=== PATIENT | female | born 1965 | race Two or more races ===

== ENCOUNTER 2016-12-31 18:49 | Inpatient (IN) | payer MEDICAID ==
[~2016-12-31] VITALS: Ht 162.6 cm; Wt 67.1 kg
[2016-12-31 18:57] VITALS: BP 156/92
--- NOTE | 2016-12-31 19:01 | NUR ---
PT IN BED 2
--- NOTE | 2016-12-31 19:12 | NUR ---
Patient being evaluated by Dr. Chavarria at bedside.
[2016-12-31] MEDS ORDERED: NACL 0.9% 2,000 ML IV ONE (19:15)
[2016-12-31 19:45] LABS: BASOPHILS # (AUTO) 0.2 K/uL (0.00-0.22); EOSINOPHILS # (AUTO) 0.1 K/uL (0-0.4); HEMATOCRIT 35.5 % (36-48); LYMPHOCYTES # (AUTO) 1.7 K/uL (2.5-16.5); MEAN CORPUSCULAR HEMOGLOBIN 26 pg (27-31); MEAN CORPUSCULAR HGB CONC 31 g/dL (33-37); MEAN CORPUSCULAR VOLUME 85 fL (80-94); MONOCYTES # (AUTO) 0.3 K/uL (0.8-1.0); MONOCYTES % (AUTO) 3.4 % (1.7-9.3); NEUTROPHILS # (AUTO) 6.5 K/uL (1.8-7.7); NEUTROPHILS % (AUTO) 74.6 % (42.2-75.2); PLATELET COUNT (AUTO) 345 K/uL (140-450); RED BLOOD CELL COUNT(AUTO) 4.17 MIL/uL (4.20-5.40); RED CELL DISTRIBUTION WIDTH 13.2 % (11.6-13.7); WHITE BLOOD COUNT (AUTO) 8.8 K/uL (4.8-10.8)
[2016-12-31 19:53] LABS: PROTHROMBIN TIME 10.4 secs (10.8-13.4)
--- NOTE | 2016-12-31 19:56 | NUR ---
PT RETURN FROM CT
[2016-12-31 19:59] LABS: ALBUMIN 3.4 g/dL (3.4-5.0); ANION GAP 13.4 (8-16); CARBON DIOXIDE 25.6 mmol/L (21-32); CREATININE 0.5 mg/dL (0.6-1.3); TOTAL BILIRUBIN 0.5 mg/dL (0.0-1.0)
--- NOTE | 2016-12-31 20:00 | NUR ---
51Y/F PRESENTS TO ER C/O CHEST PAIN, N/V X1 DAY. PMH HTN, NKA. PT STATES SHE HAS BEEN VOMITING SINCE THIS AM AND CHEST PAIN BEGAN THIS EVENING W/SOB. PT IS AA&O X4, BL LUNG SOUNDS CLEAR THROUGHOUT, NO APPARENT DISTRESS AT THIS TIME, ABD IS SOFT, ROUND, NON TENDER ACTIVE BS X4. PT HAS HEADACHE 8/10, NON RADIATING. PT HAS HTN BUT DENIES TAKING HOME MEDICATIONS. PT INBED SIDE RAILS UP X2, FAMILY AT BEDSIDE, ER MD NOTIFIED OF PT STATUS.
[2016-12-31] MEDS ORDERED: ONDANSETRON 4 MG/2 ML VIAL IVP ONE (20:20)
[2016-12-31] MEDS ORDERED: ASPIRIN 325 MG TAB PO ONE (20:20)
[2016-12-31] MEDS ORDERED: fentaNYL 0.05 MG/ML VIAL IVP ONE (20:20)
[2016-12-31] MEDS ORDERED: HYDROcodone/APAP 7.5/325 MG 1 TAB PO PRN (20:55)
[2016-12-31] MEDS ORDERED: MECLIZINE 25 MG TAB PO PRN (20:55)
[2016-12-31] MEDS ORDERED: ACETAMINOPHEN 325 MG TAB PO PRN (20:55)
[2016-12-31 20:58] LABS: BILIRUBIN,URINE NEGATIVE (NEGATIVE); BLOOD, URINE NEGATIVE (NEGATIVE); COLOR,URINE YELLOW (YELLOW); LEUKOCYTE ESTERASE ,URINE NEGATIVE (NEGATIVE); NITRITE, URINE NEGATIVE (NEGATIVE); UGLUCOSE NEGATIVE (NEGATIVE)
[2016-12-31 21:09] LABS: RBC,URINE 0-5 (RARE) /HPF (0-5); WBC,URINE 0-5 (RARE) /HPF (0-5)
[2016-12-31 21:10] LABS: APPEARANCE,URINE CLEAR (CLEAR)
[2016-12-31] MEDS ORDERED: ATORVASTATIN 20 MG TAB PO SCH (22:15)
[2016-12-31] MEDS ORDERED: NITROGLYCERIN 0.4 MG TAB SL PRN (22:15)
--- NOTE | 2016-12-31 22:25 | NUR ---
Patient will be admitted to [facility]. Admited to TELE. Will go to room 106B. Belongings list completed. Report to JESUS AMIN.
[2016-12-31 23:00] VITALS: BP 137/78
[2016-12-31] MEDS ORDERED: SUMAtriptan 50 MG TAB PO ONE (23:00)
--- NOTE | 2016-12-31 23:00 | NUR ---
ADMITTED 51 Y.O.F FROM ER.PLACED ON BED.TELE APPLIED AND SHOWING SR.PT.IS AWAKE ALERT AND ORIENTED.RESP UNLABORED IN RA.DENIED PAIN AT TIME OF ADMISSION.CALL SYSTEM EXPLAINED AND IN REACH.CARE PLAN DISCUSSED W/PT.SHE VWRBALIZED UNDERSTANDING.WILL CONTINUE MONITORING.SL PATENT IN RT.AC.
[2016-12-31] MEDS: ASPIRIN 81 MG TAB.CHEW PO SCH (23:30)
[2016-12-31] MEDS: NACL 0.9% 1,000 ML IV SCH (23:50)
[2016-12-31] MEDS: DOCUSATE SODIUM 100 MG GELCAP PO SCH (23:51)
[2016-12-31] MEDS: ONDANSETRON 4 MG/2 ML VIAL IVP PRN (23:54)
[2016-12-31 23:56] LABS: FREE T4 (FREE THYROXINE) 1.06 ng/dL (0.76-1.46); MAGNESIUM 1.8 mg/dL (1.8-2.4); PHOSPHORUS 2.9 mg/dL (2.5-4.9); THYROID STIMULATING HORMONE 1.48 uIU/mL (0.34-3.74)
[2017-01-01 04:00] VITALS: BP 130/75
--- NOTE | 2017-01-01 04:00 | NUR ---
SLEEPING.NO C/O PAIN OR DISCOMFORT NOW.IVF OF NS AT 100ML/H STARTED AND INFUSING WELL.HR IS SR.
[2017-01-01 05:49] LABS: POTASSIUM 3.8 mmol/L (3.5-5.1)
[2017-01-01 05:50] LABS: ANION GAP 10.1 (8-16); CARBON DIOXIDE 26.7 mmol/L (21-32); CREATININE 0.5 mg/dL (0.6-1.3)
[2017-01-01 05:56] LABS: MAGNESIUM 1.9 mg/dL (1.8-2.4); PHOSPHORUS 3.1 mg/dL (2.5-4.9)
[2017-01-01 06:00] LABS: BASOPHILS # (AUTO) 0.2 K/uL (0.00-0.22); BASOPHILS % (AUTO) 2.3 % (0.0-2.0); EOSINOPHILS # (AUTO) 0.1 K/uL (0-0.4); EOSINOPHILS % (AUTO) 0.8 % (0.0-4.0); HEMATOCRIT 33.3 % (36-48); HEMOGLOBIN 10.9 g/dL (12.0-16.0); LYMPHOCYTES # (AUTO) 2.2 K/uL (2.5-16.5); LYMPHOCYTES % (AUTO) 22.8 % (20.5-51.1); MEAN CORPUSCULAR HEMOGLOBIN 27 pg (27-31); MEAN CORPUSCULAR HGB CONC 33 g/dL (33-37); MEAN CORPUSCULAR VOLUME 84 fL (80-94); MONOCYTES # (AUTO) 0.5 K/uL (0.8-1.0); MONOCYTES % (AUTO) 5.2 % (1.7-9.3); NEUTROPHILS # (AUTO) 6.5 K/uL (1.8-7.7); NEUTROPHILS % (AUTO) 68.9 % (42.2-75.2); PLATELET COUNT (AUTO) 329 K/uL (140-450); RED BLOOD CELL COUNT(AUTO) 3.97 MIL/uL (4.20-5.40); RED CELL DISTRIBUTION WIDTH 13.2 % (11.6-13.7); WHITE BLOOD COUNT (AUTO) 9.5 K/uL (4.8-10.8)
[2017-01-01] MEDS: NACL 0.9% 1,000 ML IV SCH ×3 (06:11→22:05)
--- NOTE | 2017-01-01 07:40 | NUR ---
REPORT RECEIVED FROM NIGHT RN, PT AWAKE IN BED ON RA, PT DENIES PAIN, A/O X 4, NO S/S OF ACUTE DISTRESS, IV PATENT AND INTACT, FAMILY MEMBER AT BEDSIDE, SAFETY PRECAUTIONS TAKEN, CALL LIGHT WITHIN REACH.
--- NOTE | 2017-01-01 07:40 | NUR ---
REPORT GIVEN TO AM [facility] NURSE.PT IS IN STABLE CONDITION.IVF IS IN PROGRESS.TELE IS ON AND SHOWING SR.
[2017-01-01 08:00] VITALS: BP 139/79
--- NOTE | 2017-01-01 08:19 | NUR ---
PATIENT HAS BEEN SCREENED AND CATEGORIZED LOW NUTRITION RISK. PATIENT WILL BE SEEN WITHIN 7 DAYS OF ADMISSION. 01/07/[address]
[2017-01-01] MEDS: LISINOPRIL 5 MG TAB PO SCH (08:20)
[2017-01-01] MEDS: ASPIRIN 81 MG TAB.CHEW PO SCH (08:22)
[2017-01-01] MEDS: PANTOPRAZOLE 40 MG TABEC PO SCH (08:22)
[2017-01-01] MEDS: METOPROLOL 25 MG TAB PO SCH ×2 (08:27→20:44)
[2017-01-01] MEDS: DOCUSATE SODIUM 100 MG GELCAP PO SCH ×2 (08:27→20:44)
--- NOTE | 2017-01-01 08:38 | NUR ---
DUE MEDICATIONS GIVEN WITH EDUCATION, PT VERBALIZED UNDERSTANDING, PT TOLERATED WELL, CALL LIGHT WITHIN REACH, WILL CONT TO MONITOR.
[2017-01-01] MEDS ORDERED: PANTOPRAZOLE 40 MG INJ VIAL IVP SCH (09:00)
--- NOTE | 2017-01-01 11:00 | NUR ---
PT ASLEEP IN BED ON RA WITH FAMILY MEMBER AT BEDSIDE, NO S/S OF ACUTE DISRESS, CALL LIGHT WITHIN REACH, WILL CONT TO MONITOR.
[2017-01-01 12:00] VITALS: BP 123/74
[2017-01-01 16:00] VITALS: BP 142/89
--- NOTE | 2017-01-01 18:15 | NUR ---
DR THEODORE MADE AWARE OF PATIENT'S C/O WORSENING HEADACHE . DR SEGOVIA PUT ORDERS
[2017-01-01] MEDS: METHOCARBAMOL 500 MG TAB PO SCH ×2 (18:50→21:36)
--- NOTE | 2017-01-01 19:15 | NUR ---
PATIENT REPORT GIVEN AT BEDSIDE. PATIENT ENDORSED IN STABLE CONDITION
--- NOTE | 2017-01-01 19:16 | NUR ---
RECEIVED PT ON BED WITH EYES CLOSED, EASILY AROUSABLE, VITAL SIGNS STABLE, PAIN LEVEL IS MANAGEABLE AT THIS TIME, K-PAD TO BACK OF HEAD AND NECK, IVF INFUSING WELL, SAFETY MEASURES IN PLACE, PLAN OF CARE DISCUSSED WITH PT AND FAMILY MEMBER AT BEDSIDE, CALL LIGHT WITHIN REACH.
[2017-01-01 20:00] VITALS: BP 130/82
--- NOTE | 2017-01-01 20:50 | NUR ---
DUE MEDS GIVEN WITH TEACHING PROVIDED, PT DECIDED TO AMBULATE ON THE HALLWAY, WITH STEADY GAIT, ACCOMPANIED BY FAMILY MEMBER AND NIA JONES, TOLERATED WELL, STILL WITH HEADACHE, OFFERED TYLENOL OR NORCO, PT REFUSED AT THIS TIME, WILL CALL IF PAIN GET WORST, ALL NEEDS ATTENDED.
[2017-01-01] MEDS ORDERED: NAPROXEN 500 MG TAB PO SCH (22:05)
[2017-01-01] MEDS ORDERED: SUMAtriptan 50 MG TAB PO SCH (22:05)
--- NOTE | 2017-01-01 22:05 | NUR ---
PT COMPLAINING OF HEADACHE AND NECK PAIN, PT AND FAMILY MEMBER WANTS TO TALK TO RESIDENT HAND SCREEN PRINTER, DR THEODORE WENT TO ROOM AND TALK TO THEM, WITH NEW ORDERS., WILL CARRY OUT.
[2017-01-01] MEDS: ONDANSETRON 4 MG/2 ML VIAL IVP PRN (22:35)
--- NOTE | 2017-01-01 22:35 | NUR ---
PT BACK VIA WHEELCHAIR FROM CT OF CERVICAL SPINE, MADE COMFORTABLE ON BED, COMPLAINING OF NAUSEA, MEDICATED PRN WITH ZOFRAN, WILL COME BACK IN 10 MINUTES TO GIVE NEW MEDICATIONS ORDERED.
[2017-01-02] VITALS: BP 149/78
--- NOTE | 2017-01-02 | NUR ---
PT SLEEPING, EASILY AROUSABLE, PT VERBALIZED PAIN SUBSIDING, VITAL SIGNS TAKEN, BP SLIGHT ELEVATED, DENIES CHEST PAIN AND NO SOB NOTED, IVF INFUSING WELL, CONTINUE TO MONITOR CLOSELY.
--- NOTE | 2017-01-02 02:50 | NUR ---
FAMILY MEMBERS VISITING PT WENT TO NURSES STATION, WANTS TO KNOW THE PLAN OF CARE, DR THEODORE PAGED AND TALKED TO FAMILY MEMBERS.
[2017-01-02 04:00] VITALS: BP 138/82
--- NOTE | 2017-01-02 04:00 | NUR ---
PT AMBULATED TO BR WITH STEADY GAIT, DENIES DIZZINESS, PAIN OR NAUSEA, VITAL SIGNS STABLE, IVF INFUSING WELL, MONITORED CLOSELY.
[2017-01-02] MEDS: NACL 0.9% 1,000 ML IV SCH (04:27)
--- NOTE | 2017-01-02 06:00 | NUR ---
PT SLEEPING, NO SIGNS OF DISTRESS, FAMILY MEMBER AT BEDSIDE, IVF INFUSING WELL, MONITORED CLOSELY.
[2017-01-02 07:04] LABS: BASOPHILS # (AUTO) 0.3 K/uL (0.00-0.22); BASOPHILS % (AUTO) 3.9 % (0.0-2.0); EOSINOPHILS # (AUTO) 0.1 K/uL (0-0.4); EOSINOPHILS % (AUTO) 1.3 % (0.0-4.0); HEMATOCRIT 32.9 % (36-48); HEMOGLOBIN 10.5 g/dL (12.0-16.0); LYMPHOCYTES # (AUTO) 2.5 K/uL (2.5-16.5); MEAN CORPUSCULAR HEMOGLOBIN 27 pg (27-31); MEAN CORPUSCULAR HGB CONC 32 g/dL (33-37); MEAN CORPUSCULAR VOLUME 84 fL (80-94); MONOCYTES # (AUTO) 0.5 K/uL (0.8-1.0); MONOCYTES % (AUTO) 6.9 % (1.7-9.3); NEUTROPHILS % (AUTO) 53.9 % (42.2-75.2); PLATELET COUNT (AUTO) 341 K/uL (140-450); RED BLOOD CELL COUNT(AUTO) 3.91 MIL/uL (4.20-5.40); RED CELL DISTRIBUTION WIDTH 13.3 % (11.6-13.7); WHITE BLOOD COUNT (AUTO) 7.4 K/uL (4.8-10.8)
--- NOTE | 2017-01-02 07:05 | NUR ---
PT SLEEPING, NO SIGNS OF DISTRESS, REPORT GIVEN TO JESUS GONZALEZ FOR CONTINUITY OF CARE.
--- NOTE | 2017-01-02 07:06 | NUR ---
RECEIVED PT IN BED. ASLEEP. AROUSABLE TO VOICE. NO SOB NOTED. ALERT ORIENTEDX4. DENIES ANY PAIN OR DISCOMFORT AT THIS TIME. PT WENT BACK TO SLEEP. PT AMBULATORY. SAFETY PRECAUTION IN PLACE. CALL LIGHT WITHIN REACH.
[2017-01-02 07:26] LABS: ANION GAP 11.4 (8-16); CARBON DIOXIDE 25.9 mmol/L (21-32); CREATININE 0.4 mg/dL (0.6-1.3); POTASSIUM 3.3 mmol/L (3.5-5.1)
[2017-01-02 07:44] LABS: PHOSPHORUS 2.7 mg/dL (2.5-4.9)
--- NOTE | 2017-01-02 07:54 | NUR ---
DR. GARCIA MADE AWARE OF POTASSIUM 3.3. MD TO PUT IN AN ORDER.
[2017-01-02 08:00] VITALS: BP 127/77
[2017-01-02] MEDS ORDERED: POTASSIUM CHLORIDE 10 MEQ TABER PO SCH (08:28)
[2017-01-02] MEDS: METHOCARBAMOL 500 MG TAB PO SCH ×2 (08:39→12:16)
[2017-01-02] MEDS: ASPIRIN 81 MG TAB.CHEW PO SCH (08:40)
[2017-01-02] MEDS: PANTOPRAZOLE 40 MG TABEC PO SCH (08:40)
[2017-01-02] MEDS: DOCUSATE SODIUM 100 MG GELCAP PO SCH (08:40)
[2017-01-02] MEDS: METOPROLOL 25 MG TAB PO SCH (08:40)
[2017-01-02] MEDS: LISINOPRIL 5 MG TAB PO SCH (08:40)
[2017-01-02 10:30] LABS: FOLIC ACID 10.1 ng/mL (>3.0)
--- NOTE | 2017-01-02 10:30 | NUR ---
PT VERBALIZED THAT SHE FEELS BETTER NOW THAN YESTERDAY. PT WAS ABLE TO TOLERATE HER BREAKFAST. NO VOMITING NOTED. DAUGHTER AT BEDSIDE.
[2017-01-02] MEDS ORDERED: ASPI81CT95 PO (11:29)
[2017-01-02 12:00] VITALS: BP 103/57
[2017-01-02] MEDS ORDERED: ZOLP5TAB1 PO (12:15)
[2017-01-02] MEDS ORDERED: IBUP-2213 PO (12:31)
[2017-01-02] MEDS ORDERED: METH500T14 PO (12:33)
--- NOTE | 2017-01-02 13:30 | NUR ---
DISCHARGE INSTRUCTIONS AND HEALTH TEACHINGS GIVEN AND EXPLAINED TO PT. DAUGHTER AT BEDSIDE. PT VERBALIZED UNDERSTANDING AND SIGNED DISCHARGE PAPERS. REMINDED PT TO FOLLOW UP FOR AN APPOINTMENT AND FOR MRI ON Friday WRITTEN ON THE DISCHARGE PAPERS. PT AND DAUGHTER VERBALIZED UNDERSTANDING. IV CANNULA REMOVED AND INTACT. NO SOB NOTED. DENIES ANY PAIN OR DISCOMFORT AT THIS TIME. NAME ARMBAND REMOVED TELE MONITOR REMOVED.AWAITING UNCLE FOR [place].
--- NOTE | 2017-01-02 13:54 | NUR ---
PT RELATIVE CAME TO DIRECTOR MBA PT. NO SOB NOTED. DENIES ANY PAIN OR DISCOMFORT AT THIS TIME. PT WHEELED OUT GOING TO THE HOSPITAL PARKING LOT TO THEIR FAMILY OWNED VEHICLE. PT DISCHARGED ON STABLE CONDITION.
== END 2017-01-02 13:55 | disposition home or self-care (01) | DRG 54 ==
LOC: MED 18:49 → MTU 20:57
PROVIDERS: ADMIT Family Medicine; ATTEND Family Medicine
DX: G43.909 Migraine, unspecified, not intractable, without status migrainosus (principal); N17.0 Acute kidney failure with tubular necrosis; E86.0 Dehydration; M94.0 Chondrocostal junction syndrome [Tietze]; D64.9 Anemia, unspecified; M47.892 Other spondylosis, cervical region; G90.9 Disorder of the autonomic nervous system, unspecified; R11.10 Vomiting, unspecified; R82.4 Acetonuria; R80.9 Proteinuria, unspecified; K80.20 Calculus of gallbladder without cholecystitis without obstruction; E87.6 Hypokalemia
CPT/HCPCS: 36415; 70450; 71010; 72125; 76700; 80048; 80053; 81001; 82150; 82607; 82728; 82746; 82948; 83036; 83540; 83605; 83690; 83735; 83880; 84100; 84439; 84443; 84484; 85025; 85045; 85610; 87040; 87081; 87086; 93005; 93880; 96361; 96374; 96375; 99285; J2405; J3010; J7030; Q0092